=== PATIENT | female | born 2000 | race Caucasian/White ===

== ENCOUNTER 2019-04-30 19:39 | Emergency (ER) | payer OTHER ==
[~2019-04-30] VITALS: Ht 160 cm; Wt 77.1 kg
[2019-04-30 22:48] VITALS: BP 154/92
== END 2019-04-30 22:50 | disposition home or self-care (01) ==
LOC: ER 19:39
DX: S60.940A Unspecified superficial injury of right index finger, initial encounter (principal); Z77.21 Contact with and (suspected) exposure to potentially hazardous body fluids; Z88.1 Allergy status to other antibiotic agents; X58.XXXA Exposure to other specified factors, initial encounter; Y92.89 Other specified places as the place of occurrence of the external cause; Y93.89 Activity, other specified; Y99.8 Other external cause status